=== PATIENT | female | born 1945 | race Native Hawaiian/Other Pacific Islander ===

== ENCOUNTER 2018-03-30 17:26 | Outpatient (CLI) | payer OTHER | END 2018-03-30 18:08 | disposition short-term general hospital (02) | LOC: AMB 17:26 | DX: S79.811A Other specified injuries of right hip, initial encounter (principal); W01.0XXA Fall on same level from slipping, tripping and stumbling without subsequent striking against object, initial encounter; Y93.89 Activity, other specified; Y92.018 Other place in single-family (private) house as the place of occurrence of the external cause; Y99.8 Other external cause status; M25.511 Pain in right shoulder | CPT/HCPCS: A0425; A0427 ==

== ENCOUNTER 2018-05-06 20:56 | Outpatient (CLI) | payer OTHER | END 2018-05-06 21:15 | disposition short-term general hospital (02) | LOC: AMB 20:56 | DX: R53.1 Weakness (principal); M25.511 Pain in right shoulder; M25.551 Pain in right hip | CPT/HCPCS: A0425; A0427 ==

== ENCOUNTER 2020-06-05 10:53 | Observation (INO) | payer OTHER ==
[~2020-06-05] VITALS: Ht 157.5 cm; Wt 67.6 kg
[2020-06-05 10:53] VITALS: BP 130/53; TEMP 97.9
[2020-06-05 11:00] VITALS: BP 128/59
[2020-06-05] MEDS ORDERED: LISI5TAB10 PO (11:13)
[2020-06-05] MEDS ORDERED: CLARITIN10 M1 PO (11:13)
[2020-06-05] MEDS ORDERED: ULTRACET1 TAB PO (11:13)
[2020-06-05] MEDS ORDERED: METO25TA2 PO (11:14)
[2020-06-05] MEDS ORDERED: TIZA4TAB5 PO (11:14)
[2020-06-05] MEDS ORDERED: ALBU90AE13 INH (11:15)
[2020-06-05] MEDS ORDERED: OMEP40CA PO (11:15)
[2020-06-05] MEDS ORDERED: GABA300C2 PO (11:15)
[2020-06-05 11:30] VITALS: BP 148/68
[2020-06-05] MEDS ORDERED: CVS OMEPRAZOLE20 M1 PO (11:37)
[2020-06-05] MEDS ORDERED: EUTHYROX50 MCG PO (11:38)
[2020-06-05] MEDS ORDERED: ASPIRIN 81 LOW81 MG PO (11:38)
[2020-06-05] MEDS ORDERED: K-TAB20 MEQ PO (11:39)
[2020-06-05] MEDS ORDERED: CELEBREX200 MG PO (11:40)
[2020-06-05 11:59] LABS: PLATELET COUNT 190 K/uL (152-353)
[2020-06-05 12:06] LABS: POTASSIUM 3.8 mmol/L (3.6-5.2); SODIUM 139 mmol/L (136-145)
[2020-06-05 12:17] LABS: PARTIAL THROMBOPLASTIN TIME 21.7 SECONDS (24.5-33.6)
[2020-06-05 12:30] VITALS: BP 160/107
--- NOTE | 2020-06-05 15:15 | NUR ---
PT ADMIITED TO RM 1112 VIA STRETCHER FROM ER, PT LETHARGIC AND SLOW TO RESPOND TO QUESTIONS, 22G IV TO LT WRIST INTACT AND SL, LACERATION NOTED TO RT FOREHEAD THAT WAS DERMABONDED IN ER, NO DRAINAGE OR BLEEDING NOTED, BLOOD NOTED DRIED ON PT'S HAIR, SWELLING NOTED TO RT FOREHEAD FROM FALL THIS AM, SKIN TEAR NOTED TO RT ELBOW OVER A SCREW THAT WAS PLACED IN 2016, PT'S DAUGHTER STATES THE SCREW HAS ALWAYS BEEN PALPABLE THROUGH SKIN, NO BLEEDING NOTED AT THIS TIME, VITALS OBTAINED AND TEMP NOTED TO BE [address] JUNIOR OF FINDINGS
--- NOTE | 2020-06-05 15:30 | NUR ---
INFORMED DR. JUNIOR OF PT TEMP BEING 103 ON ADMISSION, DR. JUNIOR ORDERS TYLENOL 650MG PO PRN FOR FEVER GIVE ONE DOSE NOW, HE ALSO ORDERS FOR A IN AND OUT CATH TO COLLECT A URINE SAMPLE TO CHECK FOR INFECTION, NO FURTHER ORDERS GIVEN AT THIS TIME
--- NOTE | 2020-06-05 16:00 | NUR ---
IN PT RM TO PERFORM IN AND OUT CATH TO COLLECT UA, PROCEDURE PERFORMED USING STERILE TECHNIQUE, URINE COLLECTED IN TUBE FOR UA, PT TOLERATED PROCEDURE WELL, NO FURTHER NEEDS AT THIS TIME, WILL CONTINUE TO MONITOR
--- NOTE | 2020-06-05 18:18 | NUR ---
INFORMED DR. JUNIOR OF PT TEMP BEING 100.4 AFTER ADMINISTRATION OF TYLENOL AT 1640, DR. JUNIOR STATES TO GIVE IBUPROFEN 600MG PO NOW AND Q6 PRN FOR FEVER, NO FURTHER ORDERS GIVEN AT THIS TIME
[2020-06-05 18:21] VITALS: BP 158/74; TEMP 103; Ht 157.5 cm; Wt 67.6 kg
[2020-06-05 20:00] VITALS: BP 118/67; TEMP 99
[2020-06-06] VITALS: BP 144/69; TEMP 99.2
[2020-06-06 04:00] VITALS: BP 133/55; TEMP 99.1
[2020-06-06 04:47] LABS: PLATELET COUNT 176 K/uL (152-353)
[2020-06-06 05:00] LABS: POTASSIUM 3.3 mmol/L (3.6-5.2)
[2020-06-06 07:49] VITALS: BP 112/46; TEMP 99.7
[2020-06-06 11:45] VITALS: BP 141/57; TEMP 98.8
--- NOTE | 2020-06-06 13:52 | NUR ---
SPOKE TO PT ABOUT PATIENT'S EVAL, PT STATES PATIENT AMBULATED WITH ASSIST AND WAS UNSTEADY, PATIENT STATES SHE GOT LIGHT HEADED AND NAUSEATED, PATIENT THEN WALKED WITH WALKER WITH CONTACT GUARD, PT STATES PT IS WEAK AND UNSTEADY AT THIS TIME, DR. JUNIOR MADE AWARE HE STATES PATIENT NEEDS TO STAY ANOTHER NIGHT AND TO REINSERT AN IV AT THIS TIME, NO FURTHER ORDERS GIVEN
[2020-06-06 15:59] VITALS: BP 144/53; TEMP 98.4
[2020-06-06 20:00] VITALS: BP 140/43; TEMP 98.7
[2020-06-07] VITALS: BP 120/49; TEMP 98.3
[2020-06-07 04:00] VITALS: BP 165/60; TEMP 98.6
[2020-06-07 05:22] LABS: PLATELET COUNT 152 K/uL (152-353)
[2020-06-07 05:33] LABS: POTASSIUM 3.1 mmol/L (3.6-5.2)
[2020-06-07 07:53] VITALS: BP 164/64; TEMP 98.2
--- NOTE | 2020-06-07 10:32 | NUR ---
06/07/2020 0840 PHYSICAL THERAY STATED SHE ASSISTED PT OUT OF BED PT IS SLIGHTY UNSTEADY C/O OF WEAKNESS,THERAPY RECOMMENDS FOR PT TO CONTINUE TO USE WALKER FOR ASSISTANCE AT THIS TIME.SISTER PRESENT IN ROOM.CC
[2020-06-07 12:01] VITALS: BP 142/73; TEMP 98.3
--- NOTE | 2020-06-07 13:16 | NUR ---
06/07/2020 SALINE LOCK REMOVED WITH CATHETER TIP INTACT PER PCT CIARRA.CC
--- NOTE | 2020-06-07 13:47 | NUR ---
06/07/2020 0015 DISCHARGE INSTRUCTIONS GIVEN AND SIGNED.TOOK OUT VIA [employer] TO TAKE HOME PER PRIVATE VECHICLE.
--- NOTE | 2020-06-10 15:43 | NUR ---
pt sched for pcp berny eduardo/ DALY Rasheed [phone]/ kip [phone] appt 06/17/20 @ 1:20pm, DC summary faxed.
== END 2020-06-07 13:35 | disposition home or self-care (01) ==
LOC: ED 10:57 → MED/SURG 14:10
PROVIDERS: Emergency Medicine; ADMIT Internal Medicine Endocrinology, Diabetes & Metabolism; ATTEND Internal Medicine Endocrinology, Diabetes & Metabolism
PROC: 0HQ1XZZ Repair Face Skin, External Approach (ICD-10-PCS; principal; 2020-06-05)
DX: R55 Syncope and collapse (principal); E86.0 Dehydration; S01.81XA Laceration without foreign body of other part of head, initial encounter; W17.89XA Other fall from one level to another, initial encounter; Y92.091 Bathroom in other non-institutional residence as the place of occurrence of the external cause; K21.9 Gastro-esophageal reflux disease without esophagitis; I10 Essential (primary) hypertension; E03.8 Other specified hypothyroidism; M79.7 Fibromyalgia; R19.7 Diarrhea, unspecified; R11.2 Nausea with vomiting, unspecified; R41.82 Altered mental status, unspecified
CPT/HCPCS: 36415; 80048; 80053; 81000; 83880; 84484; 85027; 85610; 85730; 87015; 87040; 87045; 87324; 87328; 87329; 87449; 87635; 87899; 96360; 99220; 99284; G0378; J1650; J1956; J2405; U0003

== ENCOUNTER 2021-09-11 10:11 | Emergency (ER) | payer OTHER ==
[~2021-09-11] VITALS: Ht 157.5 cm; Wt 61.2 kg
[~2021-09-11 10:11] MED LIST: ALBU90AE13 INH; ASPIRIN 81 LOW81 MG PO; CELEBREX200 MG PO; CLARITIN10 M1 PO; CVS OMEPRAZOLE20 M1 PO; EUTHYROX50 MCG PO; GABA300C2 PO; K-TAB20 MEQ PO; LISI5TAB10 PO; METO25TA2 PO; OMEP40CA PO; TIZA4TAB5 PO; ULTRACET1 TAB PO
[2021-09-11 10:47] LABS: PLATELET COUNT 211 K/uL (152-353)
[2021-09-11 11:00] LABS: PARTIAL THROMBOPLASTIN TIME 24.1 SECONDS (24.5-33.6)
[2021-09-11 11:02] LABS: POTASSIUM 4.4 mmol/L (3.6-5.2)
[2021-09-11 12:54] VITALS: BP 139/78; TEMP 97.8
== END 2021-09-11 12:54 | disposition home or self-care (01) ==
LOC: ED 10:11
PROVIDERS: Hospitalist
DX: S00.83XA Contusion of other part of head, initial encounter (principal); S09.8XXA Other specified injuries of head, initial encounter; S16.1XXA Strain of muscle, fascia and tendon at neck level, initial encounter; S00.81XA Abrasion of other part of head, initial encounter; S00.511A Abrasion of lip, initial encounter; K44.9 Diaphragmatic hernia without obstruction or gangrene; W01.198A Fall on same level from slipping, tripping and stumbling with subsequent striking against other object, initial encounter; Y92.098 Other place in other non-institutional residence as the place of occurrence of the external cause
CPT/HCPCS: 80048; 80320; 85027; 85610; 85730; 96372; 99283; J2270; J2405; Q9963

== ENCOUNTER 2022-04-25 11:15 | Emergency (ER) | payer OTHER ==
[~2022-04-25] VITALS: Ht 157.5 cm; Wt 59.0 kg
[2022-04-25 12:11] LABS: PLATELET COUNT 185 K/uL (152-353)
[2022-04-25 12:21] LABS: POTASSIUM 4.1 mmol/L (3.6-5.2)
[2022-04-25 12:28] LABS: PARTIAL THROMBOPLASTIN TIME 24.9 SECONDS (24.5-33.6)
[2022-04-25 19:25] VITALS: BP 145/69; TEMP 98.6
== END 2022-04-25 19:25 | disposition short-term general hospital (02) ==
LOC: ED 11:15
PROVIDERS: Family Medicine
DX: R41.82 Altered mental status, unspecified (principal); S32.018A Other fracture of first lumbar vertebra, initial encounter for closed fracture; R79.89 Other specified abnormal findings of blood chemistry; Z95.0 Presence of cardiac pacemaker; U07.1 COVID-19; W18.39XA Other fall on same level, initial encounter; Y92.098 Other place in other non-institutional residence as the place of occurrence of the external cause
CPT/HCPCS: 36415; 80053; 80307; 81000; 82550; 84484; 85027; 85379; 85610; 85730; 87502; 87635; 93005; 96374; 96375; 99284; J2270; J2405; U0003

== ENCOUNTER 2022-05-11 16:55 | Inpatient (IN) | payer OTHER | END 2022-05-13 08:56 | disposition still patient (30) | LOC: PAVB 16:55 | PROVIDERS: ADMIT Family Medicine; ATTEND Family Medicine | DX: S32.019D Unspecified fracture of first lumbar vertebra, subsequent encounter for fracture with routine healing (principal); Z47.89 Encounter for other orthopedic aftercare; M62.81 Muscle weakness (generalized); R26.2 Difficulty in walking, not elsewhere classified; Z74.1 Need for assistance with personal care; R48.8 Other symbolic dysfunctions | CPT/HCPCS: 87081 ==